=== PATIENT | female | born 1940 | race Caucasian/White ===

== ENCOUNTER 2024-11-04 21:31 | Inpatient (IN) | payer MEDICARE, OTHER, SELFPAY ==
[2024-11-04] VITALS (8 sets, daily range): BP systolic 150–204; BP diastolic 74–102
--- NOTE | 2024-11-04 16:21 | ED.GENMED ---
History of Present Illness
General
Chief Complaint: Breathing Problem
Source: patient, records and ambulance crew
Exam Limitations: none
Time Seen by Provider: 11/04/24 16:12
Nursing documentation reviewed up to this point in time: agreed with
History of Present Illness
History of Present Illness:
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
disease who presents to the emergency department from home via EMS for evaluation of shortness of breath. Patient apparently had a visiting nurse out today who noticed the patient had labored breathing. Trach was suction for whitish sputum,
patient noted to be coughing. There was concern for pneumonia versus COPD exacerbation and she was transferred to the emergency room. According to the patient for the past few days she has had cough and shortness of breath. She has some tightness
in her chest. She has noticed some swelling her legs chronically but feels it is worse now. Denies abdominal pain or vomiting. Denies fever. Denies any other acute complaints. Apparently patient did just finish a course of steroids and
azithromycin�completed course yesterday without improvement in her symptoms.
Past History
Past History
ED Past Medical History: CHF, COPD, CVA, GERD, HTN, IDDM, Renal failure (Chronic kidney disease stage III), Seizures, Other (SAH 2012, FILLING STATION EQUIPMENT MECHANIC shunt), Other (tracheobronchitis, tracheal stenosis requiring tracheostomy, PNA) and Other (subarachnoid
hemorrhage, treated with brain surgery and placement of a FILLING STATION EQUIPMENT MECHANIC shunt.)
ED Past Surgical History: Brain (aneurysm coiling; hydrocephalus w/ shunting) and Other (trach and PEG (with reversal))
Social History
Tobacco: Former smoker
Alcohol: None
Drug: None
Personal:
Living: with family (Resides with her son)
Employment: Not employed
Family History
Family History: Other (Noncontributory)
Review of Systems
Review of Systems
All Other Systems: ROS reviewed and negative except as documented in HPI and ROS
Constitutional: Denies fever
Respiratory: Reports cough and trouble breathing
Cardiac: Reports chest pain
ABD/GI: Denies abdominal pain, nausea or vomiting
: Denies flank pain
Musculoskeletal: Reports edema
Neurological: Denies headache
Phy Exam
Physical Exam
Physical Exam:
General: Awake, alert, oriented x3; no acute distress
Head: Normocephalic, atraumatic
Eyes: Conjunctiva normal
Throat: Airway intact, handling secretions
Neck: Trachea midline, no JVD
Lungs: Patient has occasional coughing, coarse breath sounds bilaterally with some wheezing pronounced at the lung bases
Heart: Regular rate and rhythm, no murmurs, gallops, or rubs appreciated
Abd: Soft, non distended, nontender; she has a cholecystostomy drain in place right upper quadrant, no warmth or erythema around insertion site but she does have some small amount of pus around the insertion site
Skin: Sacral wounds
Extremities: Bilateral lower extremity edema; extremities warm well-perfused
Scores
Heart Failure Risk
Heart Failure Risk Score: Not Applicable
Heart Score for Chest Pain Patients
STEMI patient?: Not applicable
Withdrawal Assessment of Alcohol
Withdrawal Assessment Completed?: Not applicable
Course
Orders/Labs/Results
Orders:
Orders
11/04/24 16:20
Electrocardiogram (*1) Urgent
Reason for Study: Chest Pain
EKG- Treatment ONCE
CR Chest Portable - 1 View Urgent
Comment:
Reason For Exam: cough
Reason Study Needs to be Portable: Unable to Transport
11/04/24 16:24
Complete Blood Count/With Diff Urgent
NT-proBNP Urgent
Troponin I Urgent
Blood Culture Q30M
JAMARCUS Source: Blood/Venous
Specimen Description:
Blood Culture Q30M
JAMARCUS Source: Blood/Venous
Specimen Description:
11/04/24 16:25
COVID-19 Antigen Urgent
Source: Nasal Swab
Lactate Level [Lactic Acid] Urgent
Influenza A+B Rapid Molecular Urgent
JAMARCUS Source: Nasal Swab
Specimen Description:
11/04/24 16:26
Ipratropium/Albuterol Sulfate [Duoneb] 3 ml INH R NOW STA
MethylPREDNISolone PF [Solu-Medrol Pf] 125 mg IV NOW STA
11/04/24 17:19
Basic Metabolic Panel Urgent
11/04/24 17:49
LevoFLOXacin 750 MG/150 ML [Levaquin] 750 mg in 150 ml IV NOW
11/04/24 20:09
HydrALAZINE [Apresoline] 5 mg IV NOW STA
11/04/24 20:44
Admit/Transfer Patient As Directed
Co-Sign Provider:
Level of Care: Inpatient admission
Assign to:: Telemetry
Physician / Group: Htay
Diagnosis: Bronchitis / COPD Exac
Reason for Telemetry: Arrhythmia
Date to Stop Telemetry: 11/07/24
Time to Stop Telemetry: 11:00
Reason for Hospitalization: IV abx, nebs, oxygen
Expected length of stay greater than two midnights?: Yes
ELOS- Estimated Length of Stay in days: 3
I certify the patient meets the requirements for IP care: Yes
PRN Pain Medication Management As Directed
May give lesser potent ordered pain med per pt: Yes
preference::
Protocol:: Medication orders for pain may be administered in a
manner that supports deferring to patient preference
when the pt is:
- Requesting an ordered lesser potent pain medication.
Least to most potent pain medications are defined
as: acetaminophen < NSAID < tramadol < opioids
(morphine, oxycodone, hydromorphone).
- Requesting a lesser dose of the same medication IF
ORDERED.
- Requesting a less intrusive route of administration
if both routes are prescribed by the provider (PO <
IV).
11/04/24 20:46
Code Status As Directed
Resuscitation Status: Full Code
11/07/24 11:00
DC Protocol for Telemetry ONCE
Abnormal Lab Results
11/04/24 11/04/24
16:24 17:19
WBC 14.3 H 10^3/uL
(4.8-10.8)
RBC 3.88 L 10^6/uL
(4.20-5.40)
Hgb 11.6 L g/dL
(12.0-16.0)
Hct 36.0 L %
(37.0-47.0)
MCHC 32.2 L g/dL
(33.0-37.0)
Abs Immat Gran (auto) 0.2 H 10^3/uL
(0-0.05)
Absolute Neuts (auto) 11.1 H 10^3/uL
(1.4-6.5)
Absolute Monos (auto) 1.1 H 10^3/uL
(0.1-0.6)
Immature Gran % 1.5 H %
(0-0.5)
Neutrophils % 77.5 H %
(42.2-75.2)
Lymphocytes % 13.3 L %
(20.5-51.1)
Chloride 113 H mmol/L
(98-107)
Carbon Dioxide 18 L mmol/L
(22-30)
BUN 70 H mg/dl
(7-17)
Creatinine 2.3 H mg/dL
(0.6-1.0)
11/04/24 16:24
11/04/24 17:19
Vital Signs
Initial and Last Documented VS:
Initial Vital Signs
Temp Pulse Resp Pulse Ox
36.7 C 81 24 98
11/04/24 16:11 11/04/24 16:11 11/04/24 16:11 11/04/24 16:11
Last Documented Vital Signs
Temp Pulse Resp BP Pulse Ox
36.7 C 86 21 150/80 100
11/04/24 16:11 11/04/24 21:00 11/04/24 21:00 11/04/24 21:00 11/04/24 20:00
MDM/Problems Addressed
Differential Diagnosis Includes:
CHF, COPD exacerbation, pneumonia
MDM/Problems Addressed:
84-year-old female presents with increased shortness of breath and coughing, white mucus production from trach. She arrives just tachypneic but not hypoxic (she is chronically on 3 L of nasal cannula), no fever, mild to moderate hypertension with
normal heart rate. Physical exam as above. Plan to place an IV check labs including CBC and CMP, lactate and blood cultures, proBNP. Check EKG and troponin. Will check chest x-ray. Will trial DuoNeb and steroids. Monitor closely reassess after
the above.
Labs and imaging reviewed: CBC shows leukocytosis to 14 the setting of recent steroid use. CMP pending. Lactate less than 2. proBNP is elevated to 3700�prior was similarly elevated during admission for cholecystitis and COPD. Troponin negative.
Chest x-ray shows no clear pulmonary edema�there is a very poor inspiratory effort but no clear pneumonia. Nevertheless given leukocytosis and tachypnea as well as change in sputum I think she should be covered with antibiotics for pneumonia. Will
continue steroids and DuoNebs. Will admit for continued management. Discussed with hospitalist for admission.
Patient's son has some concerns prior to admission about any adjustments which might be made to her medications during hospitalization. He requested that we not make any adjustments to home meds aside from those necessary to treat her acute issue
and requested that we consult with him prior to making any big changes. I did explain to him that we would at minimum need to address infection, COPD flare, blood pressure with medications. Patient present for this conversation and asked that we
manage her care in consultation with her son.
Chronic conditions affecting care:
COPD, CHF, chronic tracheostomy
Acute Exacerbation and/or Progression of Chronic Illness:
Acute hypertensive
Acute Exacerbation and/or Progression of Chronic Illness: HTN
*Pulse Oximetry
SaO2: 98
Oxygen Mode of Delivery: High Flow to Tracheostomy
Patient hypoxic: yes (98% on 3LNC chronically-she has chronic hypoxia on room air but saturating acceptably on normal amount of supplemental oxygen)
*Critical Care Note
Total Time (30-74mins, 75-104mins- exclusive of procedures): Not Applicable
Data Reviewed
Review of Other/Old Records Reveals: Labs and Records
Source: patient, records and ambulance crew
Patient Management
Discussion with other providers: Hospitalist (Discussed with hospitalist)
Escalation/DeEscalation of care consider admission/obs:
Admission indicated
ED Attending Note
-
Portions of this chart may have been created with voice recognition software.� Occasional wrong word or��sound alike� substitutions may have occurred due to the inherent limitations of voice recognition software.
Discharge Plan
Departure
Patient Disposition: Admit
Date of Disposition: 11/04/24
Time of Disposition: 17:51
Admit to doctor: Le
Presentation/result/management discussed w/ accepting MD/DO: Hospitalist
Discharge Problem:
COPD exacerbation, Pneumonia
Interventions
Interventions:
*Risk Screen - Suicide Last Done: 11/04/24 16:11
*General Assessment Last Done: 11/04/24 16:11
*Neglect/Abuse Screening Last Done: 11/04/24 16:11
*ED- Fall Risk Assessment Last Done: 11/04/24 16:11
*ED COVID-19 Vaccine History Last Done: 11/04/24 16:11
ED- Cardiac Assessment Last Done: 11/04/24 16:15
ED- Pulmonary Assessment Last Done: 11/04/24 16:15
[2024-11-04] MEDS: SOLU-MEDROL PF 125 MG IV (16:38)
[2024-11-04] MEDS: DUONEB 3 ML INH ×2 (16:39→23:13)
[2024-11-04 16:41] LABS: Hematocrit 36.0 % (37.0-47.0); Hemoglobin 11.6 g/dL (12.0-16.0); Mean Corp Hgb Conc. 32.2 g/dL (33.0-37.0); Mean Corpuscular Volume 92.8 fL (81.0-99.0); Nucleated Red Blood Cells % 0 %; Platelet Count 228 10^3/uL (130-400); Red Cell Dist. Width 14.1 % (11.5-14.5)
[2024-11-04 17:06] LABS: Troponin I 0.015 ng/ml
[2024-11-04 17:31] LABS: COVID-19 Antigen Negative (Negative)
[2024-11-04 17:53] LABS: Blood Urea Nitrogen 70 mg/dl (7-17); Calcium 9.5 mg/dl (8.4-10.2); Carbon Dioxide 18 mmol/L (22-30); Chloride 113 mmol/L (98-107); Glucose 98 mg/dl (70-99); Sodium 140 mmol/L (135-145); eGFR 20.70
--- NOTE | 2024-11-04 17:56 | HPS.HSE ---
Family Physician
-
Family Physician: José Luis Wolfe
Chief Complaint
-
Cough
History of Present Illness
Patient is an 84 y/o female past medical history of ICH, chronic hypoxia, tracheal stenosis s/p tracheostomy, COPD, chronic heart failure, diabetes mellitus, hypertension, and chronic kidney disease who presents with increased cough. Patient had a
home visit with her PCP last week at which time she as started on azithromycin and prednisone which she completed yesterday. Patient had a follow-up visit today and PCP noted patient appears more short of breath. EMS was called and she was brought
to the emergency department for evaluation. Patient reports increased shortness of breath with increased cough and some green mucus production. She denies fevers.
Medical History
Past Medical History
Past Medical History: Reports Other
Additional Past Medical History:
History of Cerebral Aneurysm / ICH
Chronic Hypoxic Respiratory Failure
Tracheal Stenosis with Chronic Tracheostomy
Chronic HFpEF
Diabetes Mellitus, Type II
Essential Hypertension
CKD Stage IV
COPD
GERD
Past Surgical History: Reports Other
Additional Past Surgical History:
Frontal Craniotomy
LABORER POULTRY HATCHERY Shunt Placement
Tracheostomy
Social History
Tobacco: Former Smoker (Quit smoking in 2012.)
Alcohol: None
Drug: None
Living: With Family
Family History
Family History: Not pertinent
Allergies / Home Medications
Allergies reflects when Allergies were last updated in [facility].
Home Medications with original date entered in [facility]
Allergy/Medication List:
Allergies
Allergy/AdvReac Type Severity Reaction Status Date / Time
Influenza Virus Vaccines Allergy egg Verified 11/04/24 16:10
allergy;
and rash
with flu
shot
Penicillins Allergy Hives/tolerated Verified 11/04/24 16:10
ceftin
2017,
ceftriaxone
08/2022
Home Medications
potassium chloride 20 mEq tablet,extended release(part/cryst) (Klor-Con M) 20 meq PO BID ##60 04/21/17
ipratropium 0.5 mg-albuterol 3 mg (2.5 mg base)/3 mL nebulization soln 3 ml inhalation R QIDPRN PRN sob 06/05/17
hydrocodone 7.5 mg-acetaminophen 325 mg tablet 1 tab PO Q6HPRN PRN severe PAIN 06/01/19
nystatin 100,000 unit/gram topical powder 1 applic topical BIDPRN PRN under breasts 06/01/19
furosemide 20 mg tablet 20 mg PO TID Fluid Retention/Swelling #0 tabs 09/15/22
insulin glargine 100 unit/mL (3 mL) subcutaneous pen (Basaglar KwikPen U-100 Insulin) 16 unit (0.16 mL) SC HS Diabetes #0 mL 09/15/22
metoprolol succinate 25 mg tablet,extended release 24 hr 25 mg PO DAILY #60 tabs 09/15/22
Lactobac no.2-Bifidobac no.1-S. thermo 112.5 billion cell capsule (Visbiome) 1 cap PO DAILY 11/04/24
sennosides 8.6 mg tablet (senna) 8.6 mg PO Q48H 11/04/24
Review of Systems
-
A 12 point ROS was completed and negative except as noted: Yes
Constitutional: Denies Fever
Respiratory: Reports Cough and Trouble Breathing
Cardiac: Denies Chest Pain or Palpitations
Abdomen/GI: Reports Other (Son has noted increased drainage from cholecystostomy tube); Denies Abdominal Pain, Nausea or Vomiting
Physical Exam
Vital Signs
Vital Signs
Temp Pulse Resp BP Pulse Ox
98.1 F 76 16 197/78 99
11/04/24 16:11 11/04/24 17:00 11/04/24 17:00 11/04/24 17:00 11/04/24 17:00
Physical Exam
General: Comfortable and Conversant
HEENT: Anicteric, Moist mucous membranes and Tracheostomy Collar
Respiratory: Rhonchi (Diffuse) and Accessory Resp Muscle Use
Cardiac: S1/S2 and Regular Rhythm
GI: Soft, Non Tender and Other (Cholecystostomy Tube)
Rectal: Deferred by Provider
Musculoskeletal: No Clubbing and No Cyanosis
Skin: Warm and Dry
Neuro: Awake, Alert, Oriented and Nonfocal/grossly intact
Psych: Calm
Laboratory Results
-
11/04/24 16:24
11/04/24 17:19
Laboratory Results
Lactic Acid 1.7 mmol/L (0.7-2.0) 11/04/24 16:25
Total Bilirubin Cancelled 11/04/24 17:19
AST Cancelled 11/04/24 17:19
ALT Cancelled 11/04/24 17:19
Alkaline Phosphatase Cancelled 11/04/24 17:19
Troponin I 0.015 ng/ml 11/04/24 16:24
Data Reviewed
-
Diagnostic Radiology: Report Reviewed by me
Lab Data: Labs Reviewed by me
Impression/Plan
-
Acute Bronchitis / Acute COPD Exacerbation
-Patient failed outpatient prednisone and azithromycin
-Transition levofloxacin to ceftriaxone and doxycycline given prior seizure history
-Continue Duoneb QID and PRN
-Add Mucinex BID
-Consult Respiratory for chest percussion as patient likely need better mucous mobilization
-Patient received methylprednisolone 125mg IV in ED - Hold on further steroids as no significant wheezing on exam
Chronic Hypoxic Respiratory Failure
Tracheal Stenosis with Chronic Tracheostomy
-Continue supplemental oxygen via Trach collar
Prior Cholecystitis s/p Cholecystostomy Tube
-Consult General Surgery to determine if cholecystostomy tube can be removed during this hospitalization
Uncontrolled Hypertension, possibly exacerbated by recent steroids
-Continue metoprolol
-Add hydralazine PRN
Chronic HFpEF
-Continue furosemide
-Monitor Daily Weights
Diabetes Mellitus, Type II
-Continue glargine at decreased dose during hospitalization
-Monitor sugars and continue coverage insulin
CKD Stage IV
-Creatinine at baseline
DVT proph: SC Heparin
Code Status: Full Code
--- NOTE | 2024-11-04 18:30 | W.PN.UPDATE ---
Update Note
Progress Note Update
This note serves as an addendum to the H&P by reserve operator ARNOL Kelle BREWER
HPI
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
department from home via EMS for evaluation of shortness of breath. Patient apparently had a visiting nurse out today who noticed the patient had labored breathing. Trach was suction for whitish sputum, patient noted to be coughing
Vital Signs
Temp Pulse Resp BP Pulse Ox
98.1 F 75 18 204/85 100
11/04/24 16:11 11/04/24 18:00 11/04/24 18:00 11/04/24 18:00 11/04/24 18:00
PE
Gen: no acute distress
Neck: supple
Lungs: CTA
Cor: RR S1 S2
Abdomen: soft benign
HOUSE PLAYER: NFND
MS: no edema
Psych: Bilateral lower extremity edema;
Abnormal Labs
11/04/24 11/04/24
16:24 17:19
WBC 14.3 H
RBC 3.88 L
Hgb 11.6 L
Hct 36.0 L
MCHC 32.2 L
Abs Immat Gran (auto) 0.2 H
Absolute Neuts (auto) 11.1 H
Absolute Monos (auto) 1.1 H
Immature Gran % 1.5 H
Neutrophils % 77.5 H
Lymphocytes % 13.3 L
Chloride 113 H
Carbon Dioxide 18 L
BUN 70 H
Creatinine 2.3 H
Last hospitalist admission: 09/10/2022 - 09/15/2022
ASSESSMENT & PLAN
Morbid obesity
AE COPD recently completed PO Zmax
likely associated pneumonia : change in sputum but whitish
Home O2 dependent COPD
Former Smoker (Quit smoking in 2012.)
- WCC 14
- No CXR evidence of PNA somewhat limited due to poor inspiratory effort
- No increased oxygen requirement,
- Hemodynamically stable.
- PO steroids, DuoNebs.
HTN Urgency
No end organ dysfunction
- add IV Hydralazine PRN
- Metoprolol XL
HX CHF-chronic type unknown
Echo 11/15/2018-LV dimensions normal, LVH, tricuspid regurgitation
Pre exiting condition
Chronic tracheostomy on TC
Tracheal stenosis
HX Cerebral Aneurysm / ICH
Frontal Craniotomy
FILM PRODUCER Shunt Placement
T2DM
Hypertension
GERD
CKD4
DVT Px: LMWH
Full code
IP TLM
[2024-11-04] MEDS: LEVAQUIN 150 IV (18:49)
[2024-11-04] MEDS: APRESOLINE 5 MG IV (20:33)
[2024-11-04 23:10] LABS: Glucose - Point of Care 257 mg/dl (70-99)
[2024-11-04] MEDS: MUCINEX 600 MG PO (23:12)
[2024-11-04] MEDS: LASIX 20 MG PO (23:12)
[2024-11-04] MEDS: NORCO 7.5/325 1 TABLET PO (23:13)
[2024-11-04] MEDS: SENOKOT 8.6 MG PO (23:13)
[2024-11-04] MEDS: ROCEPHIN 1000 MG IV (23:16)
[2024-11-04] MEDS: STERILE WATER FOR INJECTION 10 ML IV (23:17)
[2024-11-04] MEDS: LANTUS 0.12 UNITS SC (23:27)
[2024-11-04] MEDS: HEPARIN SC (23:31)
[2024-11-05 06:00] VITALS: BMI 23.3
[2024-11-05] MEDS: DUONEB 3 ML INH ×4 (06:22→19:58)
--- NOTE | 2024-11-05 08:06 | PTCARENOTE ---
Pt arrived to floor from ED via stretcher, Resp at bedside to manage trach collar during transfer and admission. AOx3, VSS, Son at bedside to help with admission. Replacement Trach collar and suction bedside. Will review chart and continue to
monitor.
[2024-11-05 08:07] LABS: Glucose - Point of Care 121 mg/dl (70-99)
[2024-11-05 08:22] LABS: Hematocrit 34.2 % (37.0-47.0); Hemoglobin 10.9 g/dL (12.0-16.0); Mean Corp Hgb Conc. 31.9 g/dL (33.0-37.0); Mean Corpuscular Volume 92.7 fL (81.0-99.0); Platelet Count 205 10^3/uL (130-400); Red Cell Dist. Width 13.8 % (11.5-14.5)
[2024-11-05 08:29] VITALS: BP 188/79
[2024-11-05] MEDS: VIBRAMYCIN 100 MG PO (08:32)
[2024-11-05] MEDS: HEPARIN SC ×3 (08:32→17:15)
[2024-11-05] MEDS: NOVOLOG FLEXPEN-MODERATE RESISTANCE SC ×2 (08:32→17:14)
[2024-11-05] MEDS: KCL 20 MEQ PO (08:32)
[2024-11-05] MEDS: TOPROL XL 25 MG PO (08:33)
[2024-11-05] MEDS: LASIX 20 MG PO (08:33)
[2024-11-05] MEDS: DESENEX/MITRAZOL/ZEASORB 1 APPLIC TOPICAL (08:36)
[2024-11-05 09:03] LABS: Blood Urea Nitrogen 63 mg/dl (7-17); Calcium 9.2 mg/dl (8.4-10.2); Carbon Dioxide 19 mmol/L (22-30); Chloride 108 mmol/L (98-107); Estimated Creatinine Clearance 16 ml/min; Glucose 130 mg/dl (70-99); Magnesium 2.2 mg/dl (1.6-2.3); Potassium 4.5 mmol/L (3.5-5.1); Sodium 138 mmol/L (135-145); eGFR 20.70
[2024-11-05 09:06] LABS: Glycohemoglobin (HgbA1c) 5.6 % (4.0-5.6)
[2024-11-05 09:18] LABS: ALT (SGPT) < 10 U/L (0-35); AST (SGOT) 11 U/L (14-36); Albumin 4.0 g/dl (3.5-5.0); Alkaline Phosphatase 47 U/L (38-126); Total Protein 6.6 g/dl (6.3-8.2)
[2024-11-05] MEDS: APRESOLINE 5 MG IV (10:29)
[2024-11-05 10:59] LABS: B.E. -2.4 mmol/L; HCO3 21.6 mmol/L (21-28); PCO2 34 mmHg (32-35); PO2 129 mmHg (83-108)
[2024-11-05 11:00] VITALS: BP 177/71
[2024-11-05 11:05] LABS: O2 Saturation % 99.0 % (94-98)
[2024-11-05] MEDS: LASIX 40 MG IV ×2 (11:50→17:23)
[2024-11-05 12:14] LABS: Glucose - Point of Care 180 mg/dl (70-99)
--- NOTE | 2024-11-05 14:16 | W.PN.HOSP.TC ---
Addendum entered and electronically signed by Yvette Booth MD 11/05/24 15:32:
I saw and evaluated the patient independently. I reviewed the resident�s note and agree with findings and plan as documented by Dr. Easley.
GENERAL: well developed, well nourished, female in no apparent distress
HEENT: NC/AT--trach, receiving neb treatment
HEART: regular rate and rhythm, +S1, +S2
LUNGS : crackles with rhonchi bilaterally
ABDOM: soft, nontender, nondistended, + bowel sounds
EXT: no cyanosis, clubbing-- 1+ LE edema
NEUROLOGIC: nonfocal
Shortness of breath--likely acute on chronic exacerbation of HFpEF--no pna on CXR, no fevers--pt endorses SOB with inability to lie flat with white sputum and edema to legs---BNP 3700, will start IV lasix BID and follow daily weights, creat, lung
exam and symptoms--would recheck ECHO--hold home lasix for now--cont rocephin/doxy today, but will stop tomorrow
tracheostomy--for tracheal stenosis--I can find no documentation of chronic O2 use at home
Cholecystitis s/p Cholecystostomy Tube (placed 1 year ago)--apprec surgery--for tube check Thursday
essential hypertension--Uncontrolled--possibly exacerbated by recent steroids (stop)--Continue metoprolol--Add hydralazine PRN
Diabetes Mellitus, Type II--Insulin-requiring--A1c 5.6%--lantus--SSI
CKD Stage IV--Creatinine at baseline 2.1--follow with diuresis
Hyperlipidemia--no meds
DVT proph--SC Heparin
Code Status--Full Code
Original Note:
Today's Communication/Plan
-
Patient with signs of fluid overload
IV Lasix 40 mg twice daily
Monitor daily weights
Assessment / Plan
Assessment / Plan
Ms Goins is a 84-year-old female with a past medical history of COPD, hypertension, hyperlipidemia, congestive heart failure, hydrocephalus status post CLIPPER MACHINE shunt, history of subarachnoid hemorrhage, chronic tracheostomy, insulin-dependent diabetes,
chronic kidney disease who presents to the emergency department from home via EMS for evaluation of shortness of breath. Patient had a visiting nurse out today who noticed the patient had labored breathing which has been going on for a week status
post Zithromax. Trach was suction for whitish sputum, patient noted to be coughing. There was concern for pneumonia versus COPD exacerbation and she was transferred to the emergency room. According to the patient for the past few days she has had
cough and shortness of breath. She has some tightness in her chest. She has noticed some swelling her legs chronically but feels it is worse now. Denies abdominal pain or vomiting. Denies fever. Denies any other acute complaints. Apparently
patient did just finish a course of steroids and azithromycin�completed course yesterday without improvement in her symptoms. In the ED she was given antibiotics, steroids, DuoNebs, with slight improvement. Chest x-ray showed no pneumonia, but
positive for mild edema. ECG showed sinus tachycardia with PACs. Lactic acid 1.7 BNP 3700 WBC 14.3 hemoglobin 11.6 sodium 140 chloride 113 bicarb 18 anion 2.3. Blood cultures were sent and influenza PCR was negative. She also received
hydralazine for elevated blood pressures, Mucinex, respiratory therapy was consulted for chest percussion, general surgery was consulted for cholecystostomy IR will conduct tube study on 11/07. In the hospital patient was still having shortness of
breath despite these treatments. Given edema and BNP findings patient was started on IV Lasix for possible acute on chronic heart failure.
# Shortness of breath
# Chronic hypoxemic respiratory failure
# Chronic heart failure, with preserved ejection fraction EF 60% (echo 08/2022)
Possibly acute COPD Exacerbation, no wheezing
Possible acute on chronic heart failure exacerbation, elevated BNP increased leg swelling
Home Lasix 20 mg 3 times daily
Possible acute bronchitis
Pneumonia unlikely given chest x-ray findings, lack of fevers, failed abx treatment but with elevated WBC
Patient with tracheostomy
- IV ceftriaxone
-Continue Duoneb QID and PRN
-Mucinex BID
-Consult Respiratory for chest percussion as patient likely need better mucous mobilization
-Continue supplemental oxygen via Trach collar
- IV Lasix 40 mg twice daily
- Daily weights
# Cholecystitis s/p Cholecystostomy Tube
Placed about 1 year ago
-Consult General Surgery to determine if cholecystostomy tube can be removed during this hospitalization
#essential hypertension
Uncontrolled
possibly exacerbated by recent steroids
-Continue metoprolol
-Add hydralazine PRN
#Diabetes Mellitus, Type II
Insulin-dependent
A1c 5.6%
-Continue glargine at decreased dose during hospitalization
-Monitor sugars and continue coverage insulin
-Insulin sliding scale
#CKD Stage IV
-Creatinine at baseline 2.1
- 2.3 on admission
#Hyperlipidemia
Continue to monitor
DVT proph:
SC Heparin
Code Status:
Full Code
Anticipated Discharge: 24 - 48 hours
Subjective/Interval History
-
Patient was seen at bedside with nurse. Patient reported difficulty breathing slightly better than yesterday, no increased sputum production but feels like there is mucus in her lungs keeping her from breathing. She also had some abdominal pain,
especially on the right side where cholecystostomy drain is placed. Patient did not have fevers at home and did not have sick contacts. She had no other complaints. Date of Service: November 05, 2024
Objective Data
-
Labs:
Laboratory Results
11/05/24 11/05/24
07:16 10:50
WBC 8.0
Hgb 10.9 L
Hct 34.2 L
Plt Count 205
HCO3 21.6
Sodium 138
Potassium 4.5
Chloride 108 H
Carbon Dioxide 19 L
BUN 63 H
Creatinine 2.3 H
Glucose 130 H
Calcium 9.2
Total Bilirubin 0.5
AST 11 L
ALT < 10
Alkaline Phosphatase 47
Vital Signs:
Vital Signs
Temp Pulse Resp BP Pulse Ox
98.4 F 94 18 177/71 100
11/05/24 11:00 11/05/24 11:00 11/05/24 11:00 11/05/24 11:00 11/05/24 11:00
Review of Systems
-
History Source: Patient and Family
Constitutional: Denies Fever or Chills
EENT: Denies Sore Throat or Runny Nose
Respiratory: Reports Cough and Trouble Breathing; Denies Wheezing
Cardiac: Reports Chest Pain and Orthopnea; Denies Diaphoresis or Palpitations
Abdomen/GI: Reports Abdominal Pain; Denies Nausea, Vomiting or Diarrhea
Genitourinary: Reports No Symptoms; Denies Dysuria or Difficulty Voiding
Musculoskeletal: Reports Muscle Pain
Skin: Denies Itching or Rash
Neuro: Reports No Symptoms; Denies Dizzy, Headache or Weakness
Physical Exam
-
General: Well Developed, Well Nourished and Other
HEENT: Normocephalic, Atraumatic and Tracheostomy Collar
Respiratory: Rales, Rhonchi and Crackles; Negative Wheezes
Cardiac: Regular Rhythm and S1/S2; Negative Murmur or Rub
Breast: Deferred by me
GI: Soft, Nondistended, Normal Bowel Sounds, Tender (Her cholecystostomy site) and Ostomy (Cholecystostomy)
Musculoskeletal: No Cyanosis, Edema, Right Lower Extrem and Edema, Left Lower Extrem
Skin: Warm, Dry and Other (Subcutaneous bruising on bilateral legs)
Neuro: Awake and Alert
[2024-11-05] MEDS: NORCO 7.5/325 1 TABLET PO ×2 (14:48→23:58)
[2024-11-05 16:04] VITALS: BP 157/80
[2024-11-05 17:01] LABS: Glucose - Point of Care 197 mg/dl (70-99)
[2024-11-05] MEDS: FLEET MINERAL OIL ENEMA 133 ML RECTAL (17:09)
[2024-11-05] MEDS: NOVOLOG FLEXPEN-MODERATE RESISTANCE 1 UNITS SC (17:24)
[2024-11-05 19:00] VITALS: BP 147/85
[2024-11-05 21:08] LABS: Glucose - Point of Care 273 mg/dl (70-99)
[2024-11-05 23:00] VITALS: BP 150/91
[2024-11-06] VITALS (25 sets, daily range): BP systolic 58–128; BP diastolic 17–96; BMI 23.5
[2024-11-06] MEDS: VIBRAMYCIN 100 MG PO (00:17)
[2024-11-06] MEDS: DESENEX/MITRAZOL/ZEASORB 1 APPLIC TOPICAL ×3 (00:19→20:01)
[2024-11-06] MEDS: KCL 20 MEQ PO (00:19)
[2024-11-06] MEDS: LANTUS 0.12 UNITS SC (00:19)
[2024-11-06] MEDS: ROCEPHIN 1000 MG IV (00:20)
[2024-11-06] MEDS: STERILE WATER FOR INJECTION 10 ML IV (00:20)
[2024-11-06] MEDS: HEPARIN 5000 UNITS SC ×2 (00:21→12:31)
[2024-11-06] MEDS: OFIRMEV 100 IV (02:50)
[2024-11-06] MEDS: ZOFRAN 4 MG IV (03:02)
--- NOTE | 2024-11-06 04:20 | PTCARENOTE ---
Pt and son now state that pt hasn't had a BM in 5-6 days and is very uncomfortable. Stomach pain and distention, which is tender to the touch. enama x 2 with no output. Pt with heart burn and one episode of vomiting over night, NPO, unable to give
PRN bowelreg, antiemtics given. IV tylenol for pain. Pt resting at this time. will continue to monitor.
[2024-11-06 07:50] LABS: Hematocrit 44.2 % (37.0-47.0); Hemoglobin 14.8 g/dL (12.0-16.0); Mean Corp Hgb Conc. 33.5 g/dL (33.0-37.0); Mean Corpuscular Volume 89.1 fL (81.0-99.0); Platelet Count 316 10^3/uL (130-400); Red Cell Dist. Width 13.8 % (11.5-14.5)
[2024-11-06] MEDS: DUONEB 3 ML INH ×2 (07:52→10:59)
[2024-11-06 08:13] LABS: Glucose - Point of Care 114 mg/dl (70-99)
[2024-11-06 08:16] LABS: Blood Urea Nitrogen 75 mg/dl (7-17); Calcium 9.6 mg/dl (8.4-10.2); Carbon Dioxide 10 mmol/L (22-30); Chloride 105 mmol/L (98-107); Estimated Creatinine Clearance 14 ml/min; Glucose 141 mg/dl (70-99); Potassium 4.8 mmol/L (3.5-5.1); Sodium 135 mmol/L (135-145); eGFR 17.87
[2024-11-06] MEDS: NOVOLOG FLEXPEN-MODERATE RESISTANCE SC ×3 (09:19→18:37)
[2024-11-06] MEDS: LASIX IV (10:25)
[2024-11-06] MEDS: VIBRAMYCIN PO (10:26)
[2024-11-06] MEDS: KCL PO ×2 (10:26→20:01)
[2024-11-06] MEDS: TOPROL XL PO (10:26)
[2024-11-06] MEDS: OMNIPAQUE 50 ML PO (10:48)
[2024-11-06] MEDS: DILAUDID 0.25 MG IV (11:14)
--- NOTE | 2024-11-06 11:48 | PTOTSP ---
Speech Therapy Assessment
Patient has chronic and acute risk factors for dysphagia including trach collar, prior SAH, CHF, COPD and acute illness. However, no gross signs of aspiration with thin liquid trials during bedside trial today. Will assess solids once medically
cleared.
Recommend
1. Thin Liquids - not medically cleared for solids
2. Meds with liquids
3. Aspiration precautions.
4. Oral care at least [address] will follow to assess for speaking valve, and assess solids once medically cleared.
[2024-11-06 12:17] LABS: Glucose - Point of Care 101 mg/dl (70-99)
--- NOTE | 2024-11-06 13:32 | W.PN.HOSP.TC ---
Addendum entered and electronically signed by Lucero Easley MD, Resident 11/08/24 14:13:
Patient had bilateral buttock wounds from pressure injury approximately stage 2
Addendum entered and electronically signed by Yvette Booth MD 11/06/24 17:21:
I saw and evaluated the patient independently. I reviewed the resident�s note and agree with findings and plan as documented by Dr. Easley.
GENERAL: well developed, well nourished, female in distress with 10/10 abdominal pain
HEENT: NC/AT--trach
HEART: regular rate and rhythm, +S1, +S2, tachycardic
LUNGS : clear anteriorly bilaterally, increased resp rate
ABDOM: soft, nontender, nondistended, + bowel sounds
EXT: no cyanosis, clubbing, edema
NEUROLOGIC: nonfocal
septic shock--with 10/10 abdominal pain developed overnight--CT scan confirms pneumoperitoneum from possibly perforated distal descending or proximal sigmoid colon--update note written by myself about rapid response events--transferred to ICU,
pressors started, IVF, abx changed to vanco, cefepime, flagyl--surgery at bedside, likely will need OR
Shortness of breath--likely acute on chronic exacerbation of HFpEF--no pna on CXR, no fevers--pt endorses SOB with inability to lie flat with white sputum and edema to legs---BNP 3700, received IV lasix without improvement per pt but pt tachypneic
due to septic shock so holding all diuretics and giving IVF--weights, creat, lung exam and symptoms--would recheck ECHO--hold home lasix for now-- rocephin/doxy
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
history of hydrocephalus with FOOD SERVICE COORDINATOR shunt--now with perforation--consider neurosurgery eval re: shunt and concern for infection
Cholecystitis s/p Cholecystostomy Tube (placed 1 year ago)--apprec surgery-- tube check now on hold Thursday
essential hypertension--Uncontrolled--possibly exacerbated by recent steroids (watch for need for stress doses)--Continue metoprolol--Add hydralazine PRN
Diabetes Mellitus, Type II--Insulin-requiring--A1c 5.6%--lantus--SSI
CKD Stage IV--Creatinine at baseline 2.1--follow with diuresis
Hyperlipidemia--no meds
DVT proph--SC Heparin
Code Status--Full Code
Total Critical Care Time 60 minutes. I was immediately available to the patient and staff. I personally examined, reviewed labs, diagnostic images/reports, interpretations, treatment plans, discussed patient care with other providers and family
or caregivers (if patient is unable to make decisions), entered orders as appropriate and documented the medical record.
Original Note:
Today's Communication/Plan
-
Patient constipated for 5 to 7 days
Failed 2 attempts enemas
Abdominal x-ray inconclusive
CT abdomen pending
General surgery consulted
Stop IV Lasix
Assessment / Plan
Assessment / Plan
Ms Goins is a 84-year-old female with a past medical history of COPD, hypertension, hyperlipidemia, congestive heart failure, hydrocephalus status post FOOD SERVICE COORDINATOR shunt, history of subarachnoid hemorrhage, chronic tracheostomy, insulin-dependent diabetes,
chronic kidney disease who presents to the emergency department from home via EMS for evaluation of shortness of breath. Patient had a visiting nurse out today who noticed the patient had labored breathing which has been going on for a week status
post Zithromax. Trach was suction for whitish sputum, patient noted to be coughing. There was concern for pneumonia versus COPD exacerbation and she was transferred to the emergency room. According to the patient for the past few days she has had
cough and shortness of breath. She has some tightness in her chest. She has noticed some swelling her legs chronically but feels it is worse now. Denies abdominal pain or vomiting. Denies fever. Denies any other acute complaints. Apparently
patient did just finish a course of steroids and azithromycin�completed course yesterday without improvement in her symptoms. In the ED she was given antibiotics, steroids, DuoNebs, with slight improvement. Chest x-ray showed no pneumonia, but
positive for mild edema. ECG showed sinus tachycardia with PACs. Lactic acid 1.7 BNP 3700 WBC 14.3 hemoglobin 11.6 sodium 140 chloride 113 bicarb 18 anion 2.3. Blood cultures were sent and influenza PCR was negative. She also received
hydralazine for elevated blood pressures, Mucinex, respiratory therapy was consulted for chest percussion, general surgery was consulted for cholecystostomy IR will conduct tube study on 11/07. In the hospital patient was still having shortness of
breath despite these treatments. Given edema and BNP findings patient was started on IV Lasix for possible acute on chronic heart failure. On evening 11/05 patient started developing abdominal pain, reported no bowel movement in 5 to 6 days, given
2 enemas and prune juice without successful bowel movement. Abdominal x-ray was ordered which showed inconclusive gas patterns, patient vomited and had nausea, was made n.p.o. Patient received acetaminophen which relieved some of the pain. On
11/06 patient's abdomen was acutely tender, with 8-10/10 pain, repeat labs showed an anion gap of 20 with bicarb of 10, lactic acid 4.2, creatinine 2.6. Patient was given some pain medications and an abdominal CT scan was ordered. General surgery
was consulted consulted again for possible surgical intervention.
# Shortness of breath
# Chronic hypoxemic respiratory failure
# Chronic heart failure, with preserved ejection fraction EF 60% (echo 08/2022)
Possibly acute COPD Exacerbation, no wheezing
Possible acute on chronic heart failure exacerbation, elevated BNP increased leg swelling
Home Lasix 20 mg 3 times daily
Possible acute bronchitis
Pneumonia unlikely given chest x-ray findings, lack of fevers, failed abx treatment but with elevated WBC
Patient with tracheostomy
- IV ceftriaxone
-Continue Duoneb QID and PRN
-Continue supplemental oxygen via Trach collar
- IV Lasix 40 mg twice daily on hold
- Daily weights, patient up 4 kg
# Acute abdomen
SIRS criteria met, elevated white count elevated respiration elevated lactic acid
No known source of infection
Patient reports constipation of 5 to 6 days
8�10/10 pain
S/p 2 enemas, mineral and molasses, without successful evacuation
Strictly n.p.o.
Lactic acid 4.2, bicarb 10
- CT abdomen with contrast pending
- General Surgery consult
- Consider GI consult
- Consider IV fluids, may cause elevated BNP and acute heart failure exacerbation
# LYNNETTE
#CKD Stage IV
-Creatinine at baseline 2.1
-IV diuretics on hold
- 2.3 on admission currently 2.6
- Consider IV fluids, may worsen heart failure
# Cholecystitis s/p Cholecystostomy Tube
Placed about 1 year ago
-Consult General Surgery to determine if cholecystostomy tube can be removed during this hospitalization
#essential hypertension
Uncontrolled
possibly exacerbated by recent steroids
-Continue metoprolol
-Add hydralazine PRN
#Diabetes Mellitus, Type II
Insulin-dependent
A1c 5.6%
-Continue glargine at decreased dose during hospitalization
-Monitor sugars and continue coverage insulin
-Insulin sliding scale
#Hyperlipidemia
Continue to monitor
DVT proph:
SC Heparin
Code Status:
Full Code
Anticipated Discharge: > 48 hours
Subjective/Interval History
-
Last night patient had some abdominal pain and elevated heart rates. Patient reported not pooping for 5 to 6 days despite being on home bowel regiment. Patient given senna, prune juice, mineral oil enema, milk of mag enema, with no improvement.
This morning patient still complaining of abdominal pain 8-10 out of 10 and in a great deal of discomfort. Shortness of breath was not improving according to the patient but no coughing or sputum production. Patient reported no fevers or chest
pain. Date of Service: November 06, 2024
Objective Data
-
Labs:
Laboratory Results
11/06/24
06:42
WBC 14.0 H
Hgb 14.8 D
Hct 44.2
Plt Count 316 D
Sodium 135
Potassium 4.8
Chloride 105
Carbon Dioxide 10 L*
BUN 75 H
Creatinine 2.6 H
Glucose 141 H
Calcium 9.6
Vital Signs:
Vital Signs
Temp Pulse Resp BP Pulse Ox
97.4 F 118 18 104/64 95
11/06/24 07:35 11/06/24 11:25 11/06/24 11:25 11/06/24 11:25 11/06/24 11:25
I&O
11/05/24 11/06/24 11/07/24
06:59 06:59 06:59
Intake Total 180 / 180
Output Total 1500 / 1500
Balance -1320 / -1320
Review of Systems
-
History Source: Patient
Constitutional: Reports No Symptoms; Denies Fever or Fatigue
EENT: Reports Other (Dry throat); Denies Runny Nose
Respiratory: Reports Trouble Breathing; Denies Cough or Wheezing
Cardiac: Reports Orthopnea; Denies Chest Pain or Diaphoresis
Abdomen/GI: Reports Abdominal Pain, Nausea, Vomiting and Constipated; Denies Diarrhea
Genitourinary: Denies Dysuria, Frequency or Flank Pain
Skin: Denies Itching
Neuro: Reports No Symptoms; Denies Dizzy, Headache or Weakness
Physical Exam
-
General: Respiratory Distress, Pain and Conversant; Negative Fever
HEENT: Normocephalic, Atraumatic, Tracheostomy Collar and Oxygen
Respiratory: Clear to Auscultation (Unable to auscultate back due to abdominal pain); Negative Wheezes or Crackles
Cardiac: Regular Rhythm and S1/S2; Negative Murmur
GI: Tender (In all quadrants, with guarding, very tender) and Other (Known abdominal hernia)
Musculoskeletal: No Clubbing, No Cyanosis and No Edema
Skin: Warm and Dry; Negative Normal Turgor (Decreased skin turgor in all extremities)
Neuro: Awake and Alert
[2024-11-06 15:01] LABS: Glucose - Point of Care 101 mg/dl (70-99)
[2024-11-06 15:25] LABS: B.E. -8.3 mmol/L; HCO3 16.2 mmol/L (21-28); O2 Saturation % 98.8 % (94-98); PCO2 30 mmHg (32-35); PO2 122 mmHg (83-108)
[2024-11-06] MEDS: LEVOPHED 250 IV (15:43)
[2024-11-06] MEDS: NSS 1000 IV (15:43)
[2024-11-06] MEDS: SODIUM BICARBONATE 50 MEQ IV (15:43)
--- NOTE | 2024-11-06 15:43 | W.PN.UPDATE ---
Update Note
Progress Note Update
On rounds today, Dr. Easley brought to my attention that the patient was having significant abdominal pain which started last evening, bicarbonate dropped to 10, along with no response to enemas given yesterday for no bowel movements for at least 5
to 6 days. Abdominal physical exam was concerning for tenderness throughout all 4 quadrants, with very little bowel sounds if any, with increased respiratory rate and patient complaining of shortness of breath. Obtain CT scan with oral contrast
only which showed small to moderate amount of pneumoperitoneum, with small amount of complex ascites in the left side of the small bowel mesentery and pelvis concerning for acute perforated distal descending or proximal sigmoid colon. Large
rectocele with severe pelvic floor prolapse and large amount of fecal material in the rectum and distal sigmoid colon. SYSTEMS QA ANALYST shunt catheter in place.
Upon returning from CAT scan, rapid response was called as the patient became unresponsive with blood pressure 45/27. Arrived at the patient's bedside, 1 L normal saline wide open was already infusing, 1 amp of bicarb given and Levophed ordered to
start. Surgery and rivet thrower consulted and patient transferred emergently to the ICU. Bounty Hunter changing non-cuffed trach to Shiley cuffed trach in order to ventilate patient with ventilator. Patient has chronic trach from tracheal stenosis.
Antibiotics broadened to Vanco, cefepime, Flagyl.
Family has been updated.
Prognosis guarded.
Total Critical Care Time 60 minutes. I was immediately available to the patient and staff. I personally examined, reviewed labs, diagnostic images/reports, interpretations, treatment plans, discussed patient care with other providers and family
or caregivers (if patient is unable to make decisions), entered orders as appropriate and documented the medical record.
[2024-11-06] MEDS: DIPRIVAN 100 IV (16:00)
--- NOTE | 2024-11-06 16:00 | PTCARENOTE ---
Pt arrived to ICU post rapid response. RPT at bedside and bagging pt. updated...#7 uncuffed portex was replaced w/ #6 cuffed shiley trach and pt placed on vent. DIscussing plan of care.
[2024-11-06] MEDS: DUONEB INH ×2 (16:02→19:41)
[2024-11-06] MEDS: SUBLIMAZE 50 MCG IV ×4 (16:10→22:10)
--- NOTE | 2024-11-06 16:15 | PTCARENOTE ---
Pt arrived to ICU w/ eyes open and mouthing words. Pt does not follow commands. Pupils 2/sluggish. S1 S2 irregular w/ afib on monitor. Weak PP.
+1 LLE. Placed on vent....current vent settings 15/500/+5/60%...sats 99-100%. Lungs clear posteriorly. Abdomen obese and distended...no BS. Tender to touch...prn fentanyl provided. No void yet. Skin pale in color...scattered ecchymosis on
bilateral arms and legs...skin tears noted. Protective optifoam on sacrum. 22P RH and 22P LH...both sites flushed without issue but concern due to need for sedation and pressors. aware of limited IV access. VS documented. Safe
environment confirmed. Will continue to monitor closely.
[2024-11-06] MEDS: SUBLIMAZE 100 IV (16:19)
--- NOTE | 2024-11-06 16:25 | PTCARENOTE ---
at bedside to place right femoral TLC. All gtts to infuse via central line. Clean dressing w/ biopatch applied. Pt resting comfortably on diprivan and fentanyl gtts...fentanyl boluses provided due to vent dyssynchrony...see JUN.
continue to monitor closely.
--- NOTE | 2024-11-06 16:40 | PHA.VAN.IN ---
Assessment
- Assessment
Renal Function: SCR Appears Elevated from baseline
Maximum Temperature: 98.6
Minimum Temperature: 97.3
Concomitant Antimicrobials: Cefepime 1 gram IV BID, Flagyl 500 mg IV BID
Plan
- Plan
Initial / Loading Dose: 1000 mg LD x 1 dose
Maintenance Regimen: Dose by level regimen
Monitoring: Random level ordere for 11/07 at 6:00 AM
Pharmacokinetics Vancomycin I
- -
Patient Age: 84
Patient Sex: Female
Vancomycin Day #: 1
Indication: Gi / Intra-Abdominal
Requesting Provider: Dr. Easley
Height / Weight:
Height 5 ft 3 in
Actual Weight 60.237 kg
Pertinent Past Medical History: DM, CKD, COPD, BMI: 23.5
- Vital Signs / Lab Results
Temp Pulse Resp BP Pulse Ox
97.4 F 118 18 104/64 99
11/06/24 07:35 11/06/24 11:25 11/06/24 11:25 11/06/24 11:25 11/06/24 16:00
Lab Results - Hematology
11/04/24 11/05/24 11/06/24
16:24 07:16 06:42
WBC 14.3 H 8.0 14.0 H
Lab Results - Chemistry
11/04/24 11/04/24 11/05/24
16:24 17:19 07:16
BUN Cancelled 70 H 63 H
Creatinine Cancelled 2.3 H 2.3 H
Estimated Creat Clear Cancelled 16
Albumin Cancelled Cancelled 4.0
11/06/24
06:42
BUN 75 H
Creatinine 2.6 H
Estimated Creat Clear 14
Albumin
11/04/24 11/06/24
16:25 10:58
Lactic Acid 1.7 4.2 H*
Microbiology Results
11/04/24 16:24 Blood Culture - Preliminary
Blood/Venous No Growth in 48 hours- Final report to follow
11/04/24 16:24 Blood Culture - Preliminary
Blood/Venous No Growth in 24 hours- Final report to follow
11/04/24 16:25 Influenza Types A & B ([facility]) - Final
Nasal Swab Negative for Influenza A & B, NAAT
Negative results must be combined with clinical observations
and patient history.
Nucleic Acid Amplification test (NAAT)performed on the
[employer] platform.
--- NOTE | 2024-11-06 16:45 | PTCARENOTE ---
Levophed, diprivan, fentanyl gtts initiated...see intervention. Surgical consult re:perforated bowel.
--- NOTE | 2024-11-06 16:54 | CM ---
Patient admitted to [facility] initially and transferred to ICU this afternoon. Patient family in with surgical attending at this time for discussion about options and next steps.
Per chart review patient previously at 08/2022 and Patient lived at that time with her son Geo in a first floor apartment. Prior this admission patient has a walker, wheelchair and home O2 through [facility]. Patient has had [facility] in the
past, and SNF placement at [facility] and [facility] as well as a stay at [place]. Patient PCP is Dr. Page and she has used the [facility] in [place] in the past.
Plan uncertain at this time pending discussion of medical treatment plan.
--- NOTE | 2024-11-06 16:54 | CON.GS ---
Addendum entered and electronically signed by Sathish Coughlin MD 11/06/24 18:03:
I saw and examined the patient.
The Restrike Hammer Operator's note was reviewed and I agree with the note.
Comment: Acute decompensation today now vented, sedated and on pressors. Long discussion with family (3 children and more distant relatives all together). Given her inability to tolerate surgery in 2022 and decline since that time, it is very
unlikely she would survive surgery. If she did, her quality of life would likely be severely compromised. Prior to hospitalization her daughter reports she told her she was done and did not want to be in pain anymore. Family made the decision to
pursue comfort measures.
Original Note:
Consultation
-
Date/Time Consultation Performed: 11/06/24 1645
Medical History
-
Chief Complaint: abdominal pain
History of Present Illness:
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
exacerbation with interim development of abdominal pain yesterday evening with noted constipation. A bowel regimen was initiated with enemas but her pain persisted and worsened with generalized abdominal tenderness. She became acutely unstable today
with mental status changes and a rapid response was called. Her trach which was previously uncuffed was replaced with a cuffed trach and she was placed on mechanical ventilation. She is currently on IV levophed and sedated. History obtained from
primary medical team, nurseing and family.
Past Medical History
Past Medical History: CHF, COPD (on home oxygen), GERD, NIDDM, Renal Failure (stage iv ) and Other (Tracheal Stenosis with Chronic Tracheostomy)
Past Surgical History: Other (Frontal craniotomy, HARBOR ENGINEER shunt, Tracheostomy)
Social History
Tobacco: Former Smoker
Alcohol: None
Living: With Family
Family History
Family History: Reviewed & Not Pertinent
Allergies / Home Medications
Allergy/AdvReac Type Severity Reaction Status Date / Time
banana Allergy Nausea Verified 11/04/24 21:46
egg Allergy Nausea Verified 11/04/24 21:46
Influenza Virus Vaccines Allergy egg Verified 11/04/24 16:10
allergy;
and rash
with flu
shot
milk Allergy Nausea Verified 11/04/24 21:46
Penicillins Allergy Hives/tolerated Verified 11/04/24 16:10
ceftin
2017,
ceftriaxone
08/2022
�Medication �Instructions �Recorded �Confirmed �Type
potassium chloride 20 mEq 20 meq PO BID ##60 04/21/17 11/04/24 Rx
tablet,extended
release(part/cryst) (Klor-Con M)
ipratropium 0.5 mg-albuterol 3 mg 3 ml inhalation R QIDPRN PRN sob 06/05/17 11/04/24 History
(2.5 mg base)/3 mL nebulization
soln
hydrocodone 7.5 mg-acetaminophen 1 tab PO Q6HPRN PRN severe PAIN 06/01/19 11/04/24 History
325 mg tablet
nystatin 100,000 unit/gram topical 1 applic topical BIDPRN PRN under 06/01/19 11/04/24 History
powder breasts
furosemide 20 mg tablet 20 mg PO TID Fluid 09/15/22 11/04/24 Rx
Retention/Swelling #0 tabs
insulin glargine 100 unit/mL (3 16 unit (0.16 mL) SC HS Diabetes 09/15/22 11/04/24 Rx
mL) subcutaneous pen (Basaglar #0 mL
KwikPen U-100 Insulin)
metoprolol succinate 25 mg 25 mg PO DAILY #60 tabs 09/15/22 11/04/24 Rx
tablet,extended release 24 hr
Lactobac no.2-Bifidobac no.1-S. 1 cap PO DAILY 11/04/24 11/04/24 History
thermo 112.5 billion cell capsule
(Visbiome)
sennosides 8.6 mg tablet (senna) 8.6 mg PO Q48H 11/04/24 11/04/24 History
Review of Systems
-
Unable to obtain full review of systems at this time due to: Acuity and Patient Intubation
A 10 point review of systems was completed, and was negative except as per HPI.
Physical Exam
Vital Signs
Temp Pulse Resp BP Pulse Ox
97.4 F 118 18 104/64 99
11/06/24 07:35 11/06/24 11:25 11/06/24 11:25 11/06/24 11:25 11/06/24 16:00
11/05/24 11/06/24 11/07/24
06:59 06:59 06:59
Actual Weight 59.562 kg 60.237 kg
Body Mass Index (BMI) 23.5
Lab Results
WBC 14.0 10^3/uL (4.8-10.8) H 11/06/24 06:42
Hgb 14.8 g/dL (12.0-16.0) D 11/06/24 06:42
Hct 44.2 % (37.0-47.0) 11/06/24 06:42
Plt Count 316 10^3/uL (130-400) D 11/06/24 06:42
Abs Immat Gran (auto) 0.2 10^3/uL (0-0.05) H 11/04/24 16:24
Neutrophils % 77.5 % (42.2-75.2) H 11/04/24 16:24
Physical Exam
General: Pain (with abdominal exam) and Intubated (vent to trach)
HEENT: Moist Mucous Membranes and Tracheotomy
GI: Soft, Tender (generalized. Hernia to left hemiabdomen, soft. ), Distended and Other (capped cholecystostomy tube present)
Skin: Warm and Dry
Neuro: Sedated
Psych: Calm
Data Reviewed
-
CT Scan: Image Personally Visualized and interpreted, Report Reviewed by me, Discussed with Physician and Discussed with Family
Labs: Labs Reviewed by me, Discussed with Physician and Discussed with Family
Old Records: Reviewed
Assessment / Plan
-
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
with interim development of abdominal pain yesterday evening with noted constipation. Initial ABD xray with gas/stool, but no free air present. A bowel regimen was initiated with enemas but her pain persisted and worsened with generalized abdominal
tenderness. She became acutely unstable today and a rapid response was called.
Tachycardic, on levophed for hypotension. VDRF. Lactic acidosis with lactic acid of 4.2, WBC rising to 14.0 from normal on presentation. Generalized abdominal tenderness noted despite sedation. CT abd/pelvis today consistent with pneumoperitoneum
suggestive of bowel perforation, suspect ?secondary to stercoral colitis vs sigmoid diverticulitis. Reactive thickening of the adjacent small bowel. Significant stool burden with rectocele present. Additional findings of RLL pna.
Plan:
Emergent exploratory laparostomy/Iban's procedure discussed with family, await their decision on whether to proceed.
Given her multiple comorbid conditions, she is high risk for surgical complications and poor tolerance of anesthesia. High risk to remain on ventilator for a prolonged period of time post operatively.
[2024-11-06 17:06] LABS: Hematocrit 38.7 % (37.0-47.0); Hemoglobin 12.7 g/dL (12.0-16.0); Mean Corp Hgb Conc. 32.8 g/dL (33.0-37.0); Mean Corpuscular Volume 90.6 fL (81.0-99.0); Nucleated Red Blood Cells % 0 %; Platelet Count 222 10^3/uL (130-400); Red Cell Dist. Width 14.5 % (11.5-14.5); Venous Blood Gas B.E. -10.6 mmol/L (-4 to +4); Venous Blood Gas O2 Sat % 93.6 %
[2024-11-06 17:08] LABS: Venous Blood Gas O2 Therapy FIO2 60%
--- NOTE | 2024-11-06 17:14 | OR.RPT ---
Operative Report
Operative Report
Right femoral vein Central Line placement
Indication: Shock, need central access for pressor support
Consent obtained from: Patient's daughter as patient sedated and mechanically ventilated, unable to consent
Time-out was performed and patient was placed in supine position. Ultrasound was used to assess veins and both internal jugular and subclavian veins were noted to be very collapsed and too small for safe cannulation. Right femoral line was
subsequently chosen. Under sterile conditions area was cleaned with chlorhexidine and then a full body drape was placed. 3 mL of local anesthesia with lidocaine was injected. Under real-time ultrasound guidance, long axis view, the needle was
inserted and vein was punctured, once blood was aspirated, syringe was removed and guidewire was advanced which did not meet any resistance. Subsequently needle was withdrawn and guidewire was left in place. Ultrasound was used again to confirm
presence of guidewire inside the vein lumen. A small jonah was placed at the skin and a dilator was advanced to about 50% of its length. Dilator was removed and central venous catheter was advanced over guidewire and subsequently guidewire was
removed. All 3 ports were capped and they were easy to flush and were withdrawing blood without any resistance. Central line was sutured to the skin and dressing was applied.
Complications: None
Blood loss: 1-2 ml
Time spent: 35 min
--- NOTE | 2024-11-06 17:16 | CON.INTV ---
Addendum entered and electronically signed by Jaswinder Franco MD 11/11/24 11:39:
Bi-temporal muscle wasting on exam, moderate decrease in muscle mass. Per family, decreased PO intake over last weeks, suspect more than 50% decrease in PO intake over more than 1 week.
Severe protein calorie malnutrition with cachexia
Original Note:
Consultation
Consultation Request
Date/Time Consultation Requested: 11/06/2024
Date/Time Consultation Performed: 11/06/2024
Medical History
-
Chief Complaint: Severe abdominal pain
History of Present Illness:
Patient is 84-year-old female who was admitted to the hospital for suspected COPD, volume overload. She has chronic tracheostomy related to her tracheal stenosis. Today there was a rapid response called because patient developed severe abdominal
pain 10 out of 10. Patient was noted to be hypoxic and hypotensive and was emergently transferred to ICU. She was being bagged through her cuffless tracheostomy tube when I first evaluated her. Patient noted to be hypotensive received IV fluid
bolus and was started on pressors emergently. Operational Assistant consultation was requested for further input.
Past Medical History
Past Medical History: CHF, COPD (on home oxygen), GERD, NIDDM, Renal Failure (stage iv ) and Other (Tracheal Stenosis with Chronic Tracheostomy)
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
Social History
Tobacco: Former Smoker
Alcohol: None
Living: With Family
Family History
Family History: Reviewed & Not Pertinent
Allergies / Home Medications
Allergies
Allergy/AdvReac Type Severity Reaction Status Date / Time
banana Allergy Nausea Verified 11/04/24 21:46
egg Allergy Nausea Verified 11/04/24 21:46
Influenza Virus Vaccines Allergy egg Verified 11/04/24 16:10
allergy;
and rash
with flu
shot
milk Allergy Nausea Verified 11/04/24 21:46
Penicillins Allergy Hives/tolerated Verified 11/04/24 16:10
ceftin
2018,
ceftriaxone
08/2022
Home Medications
�Medication �Instructions �Recorded �Confirmed �Last Taken �Type
potassium chloride 20 mEq 20 meq PO BID ##60 04/21/17 11/04/24 11/04/24 Rx
tablet,extended
release(part/cryst) (Klor-Con M)
ipratropium 0.5 mg-albuterol 3 mg 3 ml inhalation R QIDPRN PRN sob 06/05/17 11/04/24 06/01/19 14:00 History
(2.5 mg base)/3 mL nebulization
soln
hydrocodone 7.5 mg-acetaminophen 1 tab PO Q6HPRN PRN severe PAIN 06/01/19 11/04/24 11/04/24 History
325 mg tablet
nystatin 100,000 unit/gram topical 1 applic topical BIDPRN PRN under 06/01/19 11/04/24 11/03/24 History
powder breasts
furosemide 20 mg tablet 20 mg PO TID Fluid 09/15/22 11/04/24 11/04/24 Rx
Retention/Swelling #0 tabs
insulin glargine 100 unit/mL (3 16 unit (0.16 mL) SC HS Diabetes 09/15/22 11/04/24 11/03/24 Rx
mL) subcutaneous pen (Basaglar #0 mL
KwikPen U-100 Insulin)
metoprolol succinate 25 mg 25 mg PO DAILY #60 tabs 09/15/22 11/04/24 11/04/24 Rx
tablet,extended release 24 hr
Lactobac no.2-Bifidobac no.1-S. 1 cap PO DAILY 11/04/24 11/04/24 11/04/24 History
thermo 112.5 billion cell capsule
(Visbiome)
sennosides 8.6 mg tablet (senna) 8.6 mg PO Q48H 11/04/24 11/04/24 Unknown History
Review of Systems
-
Unable to Obtain full review of systems at this time due to: Patient Intubation
Vitals / Labs / Diagnostic Testing
Vital Signs
Temp Pulse Resp BP Pulse Ox
97.4 F 118 18 104/64 99
11/06/24 07:35 11/06/24 11:25 11/06/24 11:25 11/06/24 11:25 11/06/24 16:00
Lab Data
11/06/24 16:51
Laboratory Results
11/06/24
15:20
pH 7.34 L
pCO2 30 L
pO2 122 H
HCO3 16.2 L
O2 Delivery Level Not Reportable
Microbiology
11/04/24 16:24 Blood/Venous Blood Culture - Preliminary
No Growth in 48 hours- Final report to follow
11/04/24 16:24 Blood/Venous Blood Culture - Preliminary
No Growth in 24 hours- Final report to follow
11/04/24 16:25 Nasal Swab Influenza Types A & B (LALO) - Final
Negative for Influenza A & B, NAAT
Negative results must be combined with clinical observations
and patient history.
Nucleic Acid Amplification test (NAAT)performed on the
[employer] NOW platform.
Diagnostic Testing:
Physical Exam
-
HEENT: Normocephalic and Other (Cachectic appearing, malnourished.)
Cardiovascular: S1/S2
Respiratory: Accessory Resp Muscle Use
GI: Distended, Tender and Other (Tender abdomen, rebound tenderness, guarding)
Neurology: Awake and Other (Awake, moaning on initial evaluation, subsequently sedated and placed on mechanical ventilation)
Skin: Other (Extremities are cold consistent with shock)
General: Respiratory Distress
Assessment
-
#1. Acute surgical abdomen with bowel perforation, septic shock
- Imaging suggestive of acute bowel perforation
- Patient s/p 30 mL/kg IV fluid bolus, pressor support started, pain control with IV fentanyl
- General Surgery consult.
- Target MAP greater than 65
- Patient with severe vasculopathy very difficult peripheral IV access, an emergent central line was placed in right femoral vein for ongoing resuscitation and pressor support.
- Continue broad-spectrum antibiotic with IV vancomycin, cefepime and Flagyl
#2. Acute hypoxic respiratory failure.
- This is in the setting of underlying septic shock with bowel perforation.
- Patient was initially bagged, subsequently cuffed 6.0 Shiley tracheostomy tube was placed and patient connected to mechanical ventilation
#3. Metabolic acidosis with elevated lactate.
- Elevated lactate related to underlying bowel perforation
-Continue IV fluids, pressor support as needed, eventually treatment is surgical.
Other medical diagnoses:
- Chronic tracheostomy for underlying tracheal stenosis, at baseline on trach collar
- History of cholecystitis s/p cholecystostomy tube
- Hypertension
- Diabetes mellitus
- CKD stage IV
- Severe protein calorie malnutrition with cachexia
[facility] update: 1730: I met with patient's extended family including son in the conference room. This was soon after patient's family met with the surgical service and opted not to pursue surgical intervention at this point due to procedure being
considered high risk. I confirmed family's choice of opting for nonoperative management. I explained to the family that treatment for bowel perforation is essentially surgical and medical management alone is unlikely to be successful. We
discussed various option including palliation and focusing on comfort. Family unanimously opted to focus on comfort focused care only and proceed with pain medication as needed to keep patient comfortable family understands that patient might not
survive this catastrophic critical illness. CODE STATUS changed to DNR/DNI, comfort care order set placed.
Critical Care time 85 mins -- The patient is admitted for acute critical illness for the treatment of vital organ failure and/or prevention of further life-threatening conditions. Total care includes time spent in review of history, physical exam,
medications, hemodynamic/ventilator parameters, laboratory data, imaging and discussion with house staff, pharmacy, respiratory therapy, bulk filler, and nursing.
--- NOTE | 2024-11-06 17:20 | OR.RPT ---
Operative Report
Operative Report
Tracheostomy exchange.
Patient was a rapid response brought to the ICU with hypotension of hypoxia and shock. Patient at baseline has trach collar in place.
A suction catheter was passed and patient's cough less tracheostomy tube was removed. A cuffed Shiley 6.0 tracheostomy tube was advanced over the suction catheter, suction catheter was subsequently removed. Inner cannula placed, cuff inflated and
patient connected to ventilator. No air leak was noted. Saturations stayed normal throughout the procedure.
Date of procedure: 11/06/2024
[2024-11-06 17:21] LABS: Triglycerides 108 mg/dl (10-149)
[2024-11-06 17:22] LABS: ALT (SGPT) 29 U/L (0-35); AST (SGOT) 39 U/L (14-36); Albumin 2.6 g/dl (3.5-5.0); Alkaline Phosphatase 136 U/L (38-126); Blood Urea Nitrogen 75 mg/dl (7-17); Calcium 8.5 mg/dl (8.4-10.2); Carbon Dioxide 15 mmol/L (22-30); Chloride 106 mmol/L (98-107); Estimated Creatinine Clearance 12 ml/min; Glucose 81 mg/dl (70-99); Potassium 4.4 mmol/L (3.5-5.1); Sodium 135 mmol/L (135-145); Total Protein 4.5 g/dl (6.3-8.2); eGFR 14.47
--- NOTE | 2024-11-06 17:37 | PTCARENOTE ---
Spoke w/ ...no surgery. to speak with family about plan of care.
--- NOTE | 2024-11-06 18:00 | PTCARENOTE ---
Pt's code status changed to DNR. Bracelet applied. Pt made comfort care. Family requested at bedside to allow quality time w/ patient. Emotional support provided and all questions answered. Will continue to monitor end of life symptoms.
[2024-11-06] MEDS: HEPARIN SC (18:37)
--- NOTE | 2024-11-06 20:00 | PTCARENOTE ---
Resumed care of pt laying in bed with numerous family members at bedside. Pt with eyes open, no eye contact, no tracking, no verbal responses, no purposeful movements, absent hand grasps. Per family, pt mouthing words, No observation of mouthed
words at this time. Pt unable to communicate pain at this time. HR tachycardic HR 140's, Afib on the monitor. HR irreg. #6 Cuffed Shiley trach in place on current vent settings: AC 15, TV 500, Peep 5, FIO2 60%. POX 97%. Pt with noted increased work
of breathing, tachypneic. Lungs dec/ course. Round dist firm abd, tender to palpation. Fentanyl bolus administered, Fentanyl gtt titrated per CPOT/ Comfort measures. See MAR. NO urine/ stool output at this time. Scattered ecchymosis noted to B/L
UE/LE. Weak pedal pulses. Cool extremities. Right femoral triple lumen in place infusing Fentanyl gtt and Levophed gtt. Discussion with family on plan of care. Pt on comfort measures, will begin to titrate medication in order to take pt off
ventilator. All family members in agreement. Will continue to monitor.
--- NOTE | 2024-11-06 22:13 | PTCARENOTE ---
RT at bedside to disconnect pt from Ventilator and place on trach collar. Levophed gtt turned off. Family at bedside. Emotional support provided.
--- NOTE | 2024-11-06 22:39 | W.PN.DEATH ---
Pronouncement of
-
Called to see patient to pronounce.
No spontaneous heart tones or respirations noted.
Patient not responsive to verbal stimuli.
Patient is pronounced .
Time of : 22:25
Date of : 11/06/24
Cause of : septic shock, acute bowel perforation
Family Notified: Yes (family at bedside at time of )
--- NOTE | 2024-11-06 22:53 | PTCARENOTE ---
Pt became bradycardic shortly after being removed from ventilator, then progressed to asystole. Pt with no signs of distress, pt went in peace with family at bedside. Shauna MEDRANONP in to pronounce pt, time of 2224. RO notified per protocol.
Family remains at bedside. emotional support provided.
--- NOTE | 2024-11-07 07:56 | PTCARENOTE ---
Rapid Response note from 11/06/24: This RN returned patient from CT scanner with PCT in bed around 1500hrs. Patient noted to be less interactive than start of shift, gazing at ceiling, occasionally speaking, some confused responses to questions.
Upon return to patient room, reconnected to wall o2, small bm noted and cares provided. Patient then stated 'I can't breathe' and became unresponsive starring to upper right visual field. Unable to be aroused. Spontaneous breathing and palpable
pulse noted. Rapid response called about 1520 hours. VS and EKG obtained. Attending provider ordered ABG, 1L bolus normal saline, bicarb administered, levophed gtt started. RT provided breathing support with VMB through trach collar. Patient
transferred to ICU.
--- NOTE | 2024-11-08 13:32 | PN.CDI ---
CDI
- -
CDI:
Physician Documentation Request
Admit Date: 11/04/24 21:31
Dear Doctor,
Please review the following and provide your response in the progress notes.
Clinical Indicators:
Documentation includes the diagnosis of malnutrition. Other clinical indicators are:
Pt admitted with CHF exacerbation CHFpEF /Developed septic shock/perforated colon/ AHRF
Drum Tester consult, ' - Severe protein calorie malnutrition with cachexia...'
To ensure the quality of the medical record, based on the above information and the recognized standards for malnutrition , could you please verify in your progress notes which of the following responses best reflects the patient's nutritional
status:
Severe protein Calorie Malnutrition is/was present and is a clinical diagnosis (please provide additional support in the medical record)
Cachexia only
Other (please specify)
[place] Criteria ([facility] Hospitalist 2017)
2 or more criteria must be present for either
non severe or severe malnutrition
Note that the criteria differs related to the
presence of an acute or chronic illness
Acute Illness Chronic Illness
Energy Intake Non Severe: <75% for >7 days Non Severe: <75% for >1 month
Severe: <50% for >5 days Severe: <75% for >1 month
Weight Loss Non Severe: 1-2% over 1 week Non Severe: 5% over 1 month
5% over 1 month 7.5% over 3 months
7.5% over 3 months 10% over 6 months
1 year N/A 20% over 1 year
Severe: >2% over 1 week Severe: >5% over 1 month
>5% over 1 month >7.5% over 3 months
>7.5% over 3 months >10% over 6 months
1 year N/A >20% over 1 year
Body Fat Non Severe: Mild Decrease Non Severe: Mild Loss
Severe: Moderate Decrease Severe: Severe Loss
Muscle Mass Non Severe: Mild Decrease Non Severe: Mild Loss
Severe: Moderate Decrease Severe: Severe Loss
Fluid Accumulation Non Severe: Mild Accumulation Non Severe: Mild Accumulation
Severe: Moderate to severe Severe: Moderate to severe
accumulation accumulation
Reduced Cattle Driver Strength Non Severe: N/A Non Severe: N/A
Severe: Measurably reduced Severe: Measurably reduced
Use of terms such as suspected, likely, concern for, or probable (associated with a specific diagnosis that is being evaluated, monitored, or treated as if it exists) are acceptable and can be coded in the inpatient setting, when documented at the
time of discharge.
Thank you,
Maryse Tello RN
CDI Specialist
[place] [facility]
Please use your independent medical judgment in providing your response.
--- NOTE | 2024-11-08 13:46 | PN.CDI ---
CDI
- -
CDI:
Physician Documentation Request
Admit Date: 11/04/24 21:31
Dear Doctor/Resident ,
Please review the following and provide your response in the progress notes.
Clinical Indicators:
Pt admitted with CHF exacerbation CHFpEF /Developed septic shock/perforated colon/ AHRF
Nursing wound care note 11/05,'Present on admission bilateral buttock pressure injury stage 2 ..silicone border placed...'
Physician documentation of the type and location of wounds is required for compliant documentation. Based on the above clinical findings and your assessment, please provide the following in your progress note:
1. Location of the ulcer/wound, including laterality.
2. Type (etiology) of ulcer/wound:
- Pressure (decubitus) ulcer
- Non-pressure ulcer
- Other ( please specify)
Use of terms such as suspected, likely, concern for, or probable (associated with a specific diagnosis that is being evaluated, monitored, or treated as if it exists) are acceptable and can be coded in the inpatient setting, when documented at the
time of discharge.
Thank you,
Maryse Tello RN
CDI Specialist
[place] [facility]
Please use your independent medical judgment in providing your response.
*Source: National Pressure Ulcer Advisory Panel (NPUAP)
== END 2024-11-06 22:25 | disposition expired | DRG 291 ==
LOC: ICU 21:31
PROVIDERS: Internal Medicine; Physician Assistant Medical; Student in an Organized Health Care Education/Training Program; ADMITTING PHYSICIAN Internal Medicine; ATTENDING PHYSICIAN Internal Medicine; CONSULT PHYSICIAN Internal Medicine; CONSULT PHYSICIAN Surgery; EMERGENCY PHYSICIAN Emergency Medicine; FAMILY PHYSICIAN Internal Medicine Geriatric Medicine
PROC: 0B21XFZ Change Tracheostomy Device in Trachea, External Approach (ICD-10-PCS; 2024-11-06)
PROC: 5A1935Z Respiratory Ventilation, Less than 24 Consecutive Hours (ICD-10-PCS; 2024-11-06)
PROC: 06HY33Z Insertion of Infusion Device into Lower Vein, Percutaneous Approach (ICD-10-PCS; 2024-11-06)
DX: I13.2 Hypertensive heart and chronic kidney disease with heart failure and with stage 5 chronic kidney disease, or end stage renal disease (principal); A41.9 Sepsis, unspecified organism; I50.33 Acute on chronic diastolic (congestive) heart failure; N18.6 End stage renal disease; R65.21 Severe sepsis with septic shock; J96.21 Acute and chronic respiratory failure with hypoxia; E43 Unspecified severe protein-calorie malnutrition; K63.1 Perforation of intestine (nontraumatic); J44.1 Chronic obstructive pulmonary disease with (acute) exacerbation; G91.9 Hydrocephalus, unspecified; R64 Cachexia; E87.20 Acidosis, unspecified; J39.8 Other specified diseases of upper respiratory tract; Z99.81 Dependence on supplemental oxygen; Z98.2 Presence of cerebrospinal fluid drainage device; E78.5 Hyperlipidemia, unspecified; E11.22 Type 2 diabetes mellitus with diabetic chronic kidney disease; Z93.0 Tracheostomy status; K21.9 Gastro-esophageal reflux disease without esophagitis; Z87.891 Personal history of nicotine dependence; Z88.7 Allergy status to serum and vaccine; Z88.0 Allergy status to penicillin; Z68.23 Body mass index [BMI] 23.0-23.9, adult; I16.0 Hypertensive urgency; K59.00 Constipation, unspecified; Z66 Do not resuscitate; Z79.4 Long term (current) use of insulin; Z91.018 Allergy to other foods; L89.152 Pressure ulcer of sacral region, stage 2
CPT/HCPCS: 36600; 71045; 74018; 74176; 80048; 80053; 82248; 82805; 82962; 83036; 83605; 83735; 83880; 84443; 84478; 84484; 85025; 85027; 87040; 87502; 87811; 92523; 93005; 94002; 94640; 96365; 96375; 99285